=== PATIENT | female | born 1955 | race Caucasian/White ===

== ENCOUNTER 2017-12-13 06:19 | Inpatient (IN) ==
--- NOTE | 2017-12-01 09:31 | ANES ---
Anesthesia Pre Procedure Eval HOME MEDICATIONS Loratadine [Alavert] 10 mg PO BID PRN 07/06/13 [Last Taken Unknown] Omeprazole [Prilosec] 20 mg PO DAILY 07/06/13 [Last Taken Unknown] Acetaminophen [Tylenol] 500 - 1,000 mg PO Q4H PRN 10/23/13 [Last Taken Unknown] Citalopram Hydrobromide [Celexa] 10 mg PO DAILY 10/23/13 [Last Taken Unknown] turmeric root extract 500 mg capsule 500 mg PO DAILY 10/25/17 [Last Taken Unknown] Allergies/Adverse Reactions: Allergies Allergy/AdvReac Type Severity Reaction Status Date / Time doxycycline Allergy Mild Hives Verified 12/01/17 08:38 - Planned Procedure Planned Procedure: Right Total Hip Arthroplasty Medication List Reviewed:: Yes Allergies Verified: Yes Medical History (Last Reviewed 12/01/17 @ 08:32 by Seda Roman RN) Basal cell carcinoma on face and bilateral upper extremities, treated with excision GERD (gastroesophageal reflux disease) Onset Date: Unknown Gallstone Onset Date: Unknown Gastritis Onset Date: Unknown Hip pain, right Onset Date: ~2015 IBS (irritable bowel syndrome) Onset Date: Unknown Tongue lesion Onset Date: Unknown Surgical History (Last Updated 12/01/17 @ 08:33 by Seda Roman RN) H/O colonoscopy Onset Date: Unknown Caropresso-tubular adenoma. Bagan-hyperplastic polyp. Recheck 5 yrs.10/30/1307/2008 H/O dilation and curettage Onset Date: ~1975 History of appendectomy Onset Date: ~1981 History of basal cell carcinoma excision on face and bilateral upper extremities History of cardiac cath Onset Date: ~2014 Abdula History of esophagogastroduodenoscopy (EGD) Onset Date: Unknown 10/30/13 Bagan-clotest positive. Moderate chronic gastritis. Hx of cholecystectomy Onset Date: ~1981 open Family History (Last Updated 12/01/17 @ 08:33 by Seda Roman RN) Father Cancer leukemia Hypertension Mother , 72 Diabetes Heart disease Cancer colon, lung Hypertension Sister 3, 1 with RA and 1 with Crohn's - Airway/Neck/Teeth Within Normal Limits:: Yes Denture Type: Perm crown/bridge Mallampatti Score: 3 Thyromental (T-M) distance: > 6 cm Mandibulo Hyoid distance: > 3 cm - Cardiovascular Tolerates Activity: Fair Heart Sounds: S1 & S2, Regular - Anesthesia Assessment and Plan ASA Class: PS, II Anesthesia Type Plan: Spinal
[~2017-12-13 06:19] MED LIST: MORPHINE SULFATE 15 MG TABLET.SA PO PRN; ROPIVACAINE HCL/PF 100 MG, EPINEPHrine 0.2 MG, KETOROLAC TROMETHAMINE 30 MG in NORMAL S... IJ PRN; TRANEXAMIC ACID 1,000 MG in NORMAL SALINE 100 ML IV PRN; ceFAZolin SODIUM 1 GM VIAL IV PRN
[2017-12-13] MEDS: RINGER'S SOLUTION,LACTATED 1,000 ML IV PRN ×3 (07:03→09:22)
--- NOTE | 2017-12-13 07:24 | ANES ---
Anesthesia Pre Procedure Eval Vitals/Labs: Last Vital Signs Temp 36.7 C 12/13/17 06:32 Pulse 75 12/13/17 06:32 Resp 16 12/13/17 06:32 BP 129/75 12/13/17 06:32 Pulse Ox 97 12/13/17 06:32 HOME MEDICATIONS Acetaminophen [Tylenol] 500 - 1,000 mg PO Q4H PRN 10/23/13 [Last Taken Unknown] turmeric root extract 500 mg capsule 500 mg PO DAILY 10/25/17 [Last Taken Unknown] citalopram 10 mg tablet 10 mg PO DAILY #90 tab 12/02/17 [Last Taken Unknown] loratadine 10 mg tablet 10 mg PO DAILY 12/02/17 [Last Taken Unknown] omeprazole 20 mg capsule,delayed release 20 mg PO DAILY #90 cap 12/02/17 [Last Taken Unknown] triamcinolone acetonide 0.1 % dental paste 1 applic DT DAILY PRN #5 g 12/02/17 [Last Taken Unknown] Allergies/Adverse Reactions: Allergies Allergy/AdvReac Type Severity Reaction Status Date / Time doxycycline Allergy Mild Hives Verified 12/13/17 06:39 - Planned Procedure Planned Procedure: Right Total Hip Arthroplasty Medication List Reviewed:: Yes Allergies Verified: Yes Medical History (Last Reviewed 12/13/17 @ 07:22 by Arpit Raines CRNA) Basal cell carcinoma on face and bilateral upper extremities, treated with excision GERD (gastroesophageal reflux disease) Onset Date: Unknown Gallstone Onset Date: Unknown Gastritis Onset Date: Unknown Hip pain, right Onset Date: ~2015 IBS (irritable bowel syndrome) Onset Date: Unknown Tongue lesion Onset Date: Unknown Surgical History (Last Reviewed 12/13/17 @ 07:22 by Arpit Raines CRNA) H/O colonoscopy Onset Date: Unknown Caropresso-tubular adenoma. Bagan-hyperplastic polyp. Recheck 5 yrs.10/30/1307/2008 H/O dilation and curettage Onset Date: ~1975 History of appendectomy Onset Date: ~1981 History of basal cell carcinoma excision on face and bilateral upper extremities History of cardiac cath Onset Date: ~2014 Abdula History of esophagogastroduodenoscopy (EGD) Onset Date: Unknown 10/30/13 Bagan-clotest positive. Moderate chronic gastritis. Hx of cholecystectomy Onset Date: ~1981 open Family History (Last Reviewed 12/13/17 @ 07:22 by Arpit Raines CRNA) Father Cancer leukemia Hypertension Mother , 72 Diabetes Heart disease Cancer colon, lung Hypertension Sister 3, 1 with RA and 1 with Crohn's - Airway/Neck/Teeth Within Normal Limits:: Yes Teeth Condition: Intact Mallampatti Score: 2 Thyromental (T-M) distance: > 6 cm Mandibulo Hyoid distance: > 3 cm - Respiratory Respiratory: lungs clear Smoking Status: Never smoker Discussed smoking cessation including day of surgery: No Sleep Apnea currently treated: No Sleep Apnea by current assessment: No Discussed Risks/Treatment of COMFORT: No - Cardiovascular Tolerates Activity: Good Heart Sounds: S1 & S2, Regular - Anesthesia Assessment and Plan ASA Class: PS, II Anesthesia Type Plan: Spinal
[2017-12-13] MEDS ORDERED: DEXTROSE 5%-LACTATED RINGERS 1,000 ML IV PRN (09:57)
[2017-12-13] MEDS ORDERED: ACETAMINOPHEN 500 MG TABLET PO PRN (09:57)
[2017-12-13] MEDS ORDERED: MAGNESIUM HYDROXIDE 30 ML UDC PO PRN (09:57)
[2017-12-13] MEDS ORDERED: MORPHINE SULFATE 2 MG/ML DISP.SYRIN IV PRN (09:57)
[2017-12-13] MEDS ORDERED: diphenhydrAMINE HCL 50 MG/ML VIAL IV PRN (09:57)
[2017-12-13] MEDS ORDERED: ZOLPIDEM TARTRATE 5 MG TABLET PO PRN (09:57)
[2017-12-13] MEDS ORDERED: MAG HYDROX/ALUMINUM HYD/SIMETH 30 ML UDC PO PRN (09:57)
--- NOTE | 2017-12-13 09:57 | OR ---
Operative Report - Dictated Report Narrative: Date: 12/13/2017 Preoperative diagnosis: Right hip degenerative joint disease. Postoperative diagnosis: Right hip degenerative joint disease. Procedure: Right Total hip arthroplasty. Surgeon: Eugene Khan M.D. Carbon Brushes Assembler: Kade Cardenas PA-C Anesthesia: Spinal and local periarticular joint injection. Complications: None Specimens: Bone for disposal. Estimated blood loss: 200 milliliters. Retained implants: Depuy Johnston size 4 femoral stem standard offset. Size 56 millimeter outside diameter 3-hole [place] Gription acetabular cup. 56 millimeter outside by 40 millimeter inside diameter highly cross-linked acetabular liner. 40 millimeter diameter +1.5 millimeter ceramic femoral head. Cancellous 6.5mm screw 25 millimeter length Indications: Mrs. Veliz is a 62-year-old female who has had long-standing left hip pain and arthrosis. This patient was followed in my clinic for period of time with significant complaints of left hip pain consistent with arthritic changes. She failed conservative measures including but not limited to activity modification, passage of time, medications, and other conservative measures. Patient wished to proceed with surgical treatment. The risks, benefits, and alternatives were discussed in clinic. The risks of , blood clots, bleeding, infection, nerve/tendon blood vessel/ injury, malposition of components, dislocation and/or instability of joint, intraoperative fracture, postoperative limited range of motion, persistent pain, failure of components, and need for additional procedures. Patient wished to proceed. Consent was obtained after answering all questions. Procedure: After marking the correct extremity on the floor, the patient was taken to the operating room. A timeout was performed. IV antibiotics consisting of Ancef were administered prior to the procedure. A spinal anesthetic was induced by anesthesia. A Allen catheter was inserted. The patient was then transitioned to a lateral position on a well-padded pegboard. An axillary roll was placed. The head was in neutral position. The non- operative down leg was well-padded with SCD and TERI hose in place. The arms were supported and padded to protect from any undue pressure on the bony prominences and nerves. A well-padded anterior and posterior pelvic and chest posts were secured in order to maintain a stable position of the pelvis. This was placed so that the pelvis was perpendicular to the floor. The body was in line with the pelvis. Once it was felt that we had protected all the bony prominences and the patient was well secured with a safety belt as well, the leg was pre-scrubbed with alcohol, prepped and draped in a standard sterile fashion. A standard anterior lateral hip incision was marked out over the greater trochanter. Ioban drapes were then placed. The skin incision was then made. Sharp dissection with a scalpel utilizing cautery for hemostasis was carried out down to the gluteus and iliotibial band fascia. This was split in line with the skin incision. The greater trochanter bursa was excised. The anterior and posterior margins of the abductor tendon were identified. The anterior 1/2-1/3 of the tendon was tagged and reflected off the greater trochanter leaving a sleeve of tendon for repair at the completion of the case. This exposed the underlying hip joint capsule. A limb length stitch was placed in the skin and referencedd off a beth on the greater trochanter for evaluation of intraoperative limb lengths. An inverted T-type capsulotomy was made extending this up to the brim of the acetabulum. Using Homans to assist with elevation of the soft tissues off the anterior, superior, and inferior aspects of the femoral neck, the hip was then placed in a figure 4 position and the femoral head was dislocated. With the leg in an externally rotated and adducted position, the cutting flag was utilized in order to beth for a standard femoral neck cut approximately a fingerbreadth above the level of the lesser trochanter. This was done with reference to pre-operative films and overall alignment. This was done while protecting the surrounding soft tissues with Homans. The femoral head was then removed and sized for guidance on preparation of the acetabulum. It was noted that there was loss of articular cartilage on both the femoral head and weightbearing portions of the acetabulum. We then returned the leg to the table and turned our attention to the acetabulum. While protecting the surrounding soft tissues, the labrum and remaining tissue in the fovea were excised using a scalpel and cautery. A series of reamers up to size 56 millimeter were utilized to prepare the acetabulum. The final reamer had good purchase and exposed the bleeding subchondral bone. The acetabulum was then thoroughly irrigated ensuring that all bony and cartilaginous materials were removed, and the final acetabular shell was impacted into place. This was placed in approximately 45 degrees of abduction and 20 degrees of anteversion utilizing the outrigger and body axis for alignment. This had a good press fit. 1 6.5mm cancellous screw was placed in the superior posterior quadrant of the acetabulum. The shell was then thoroughly irrigated and the final polyethylene was impacted into place ensuring that it seated completely. This was then protected with a sponge while we returned our attention to the femur. With the leg in a figure 4 position, utilizing Homans for soft tissue protection, a box cutting osteotome, followed by Charnley awl, followed by serial reamers and broaches were utilized in order to prepare the femur. It was found that a size 4 broach gave good axial and rotational stability. The proximal femur was visualized to ensure that there were no signs of fracture. A series of heads and necks were trialed. It was found that a standard neck and a + 1.5 femoral head gave good overall stability. There was minimal longitudinal instability. With the leg in the position of sleep, the femoral head was well covered. Hip range of motion was able to reach full extension and external rotation to greater than 75 degrees prior to impingement along the posterior acetabulum. The hip was able to be flexed to greater than 90 degrees with int ernal rotation greater than 60 degrees prior to anterior impingement. The limb lengths were near equal based on comparison to the contralateral side and the prior placed limb length stitch. At this point it was felt these were the appropriately sized femoral components as well as neck and femoral head. The trial implants were removed. The femur was thoroughly irrigated. The final implants were impacted into place, and the hip was reduced. After ensuring that there was no damage to the proximal femur, the standard periarticular joint injection of ropivacaine, Toradol, and epinephrine were injected into the joint capsule and surrounding soft tissues. Anesthesia then administered intravenous tranexamic acid. The capsule was repaired with a single interrupted #1 Vicryl. The abductor tendon was repaired to the greater trochanter utilizing #5 Ethibond through drill holes. This was oversewn with #1 Vicryl. The fascia was closed with interrupted #1 Vicryl. The wounds were thoroughly irrigated as we closed in layers. The deep and subcutaneous fat layers were closed with 0 and 3-0 Vicryl respectively. The subcutaneous tissue was closed with a running 3-0 Vicryl and the skin with teri. All sponge, needle, blade, and instrument counts were correct prior to closing the wounds. Sterile dressings consisting of Xeroform, 4 x 4's, and tape were applied. The patient was awoken and transferred to her hospital bed and then to the postanesthesia care unit in stable condition. Postoperative condition: The plan is to admit to the medical/surgical inpatient floor postoperatively. There will be a projected 1 to 3 day hospital stay. Postoperatively 24 hours of IV antibiotics, pain control, physical therapy, occupational therapy, and medical comanagement will be utilized. Patient will be weightbearing as tolerated with anterior hip precautions. Postoperative films will be obtained in the recovery room.
[2017-12-13] MEDS ORDERED: TRIAMCINOLONE ACETONIDE 5 APPL TUBE DT PRN (09:59)
--- NOTE | 2017-12-13 10:16 | ANES ---
Post Anesthesia Discharge - Transfer of Care Transfer of Care handoff given to nurse: Yes - Discharge from PACU Discharge from PACU when meets criteria: Yes - Discharge to ASU Discharge to ASU-no complications/pt stable: Yes
--- NOTE | 2017-12-13 10:48 | ANES ---
Post Anesthesia Assessment - Vital Signs Vitals: Last Vital Signs Temp 36.3 C 12/13/17 10:35 Pulse 52 L 12/13/17 10:40 Resp 18 12/13/17 10:40 BP 99/56 12/13/17 10:40 Pulse Ox 98 12/13/17 10:40 Airway Patency: Normal - Mental Status Level Of Consciousness: Awake - Pain Level Pain Score: 0 - N/V Assessment Nausea/Vomiting Presence: None Dehydration:: No
[2017-12-13] MEDS: KETOROLAC TROMETHAMINE 15 MG/ML VIAL IV SCH ×3 (11:12→21:23)
[2017-12-13] MEDS: ONDANSETRON HCL/PF 2 MG/ML VIAL IV PRN (11:47)
[2017-12-13] MEDS: ceFAZolin SODIUM 1 GM in DEXTROSE 5 % IN WATER 100 ML IV SCH ×6 (12:28→22:59)
[2017-12-13] MEDS: oxyCODONE HCL/ACETAMINOPHEN 1 TAB TABLET PO PRN ×3 (14:02→23:04)
[2017-12-13] MEDS: MORPHINE SULFATE 15 MG TABLET.SA PO SCH (20:06)
[2017-12-13] MEDS ORDERED: SENNOSIDES/DOCUSATE SODIUM 1 TAB TABLET PO SCH (21:00)
[2017-12-13] MEDS ORDERED: PANTOPRAZOLE SODIUM 20 MG TABLET.DR PO SCH (21:00)
[2017-12-14] MEDS: KETOROLAC TROMETHAMINE 15 MG/ML VIAL IV SCH ×3 (03:26→16:00)
[2017-12-14 05:47] LABS: Hemoglobin 10.4 gm/dL (12.5-16.0); Mean Cell Volume 91.4 fl (78-100); Mean Corpuscular Hemoglobin 29.7 pg (27-31); Mean Corpuscular Hgb Conc 32.5 g/dl (32-36); Mean Platelet Volume 11.1 fl (8-12.5); Platelet Count 215 K/mm3 (150-450); Red Cell Distribution Width 13.1 % (11.5-14.0); White Blood Count 14.8 K/mm3 (4.0-10.5)
[2017-12-14 05:48] LABS: BUN/Creatinine Ratio 9.7 (9.0-21.6); Calcium * 7.7 mg/dL (7.9-10.9); Estimated Creat Clear 51.5
[2017-12-14] MEDS ORDERED: PANTOPRAZOLE SODIUM 20 MG TABLET.DR PO SCH (07:00)
[2017-12-14] MEDS: ONDANSETRON HCL/PF 2 MG/ML VIAL IV PRN (07:10)
[2017-12-14] MEDS: MECLIZINE HCL 25 MG TABLET PO PRN ×2 (08:21→09:58)
[2017-12-14] MEDS ORDERED: ENOXAPARIN SODIUM 40 MG/0.4 ML SYRG SC SCH (08:58)
[2017-12-14] MEDS ORDERED: CITALOPRAM HYDROBROMIDE 10 MG TABLET PO SCH (09:00)
[2017-12-14] MEDS ORDERED: LORATADINE 10 MG TABLET PO SCH (09:00)
[2017-12-14] MEDS: MORPHINE SULFATE 15 MG TABLET.SA PO SCH (10:00)
[2017-12-14] MEDS: oxyCODONE HCL/ACETAMINOPHEN 1 TAB TABLET PO PRN ×2 (11:17→15:24)
[2017-12-14 15:41] VITALS: BP 100/50
--- NOTE | 2017-12-14 15:52 | DS ---
(1) Status post total hip replacement, right Problem: Acute (2) Acute blood loss anemia Problem: Acute (3) Environmental allergies Problem: Chronic (4) Depression Problem: Chronic Description of Stay: Mrs. Veliz was admitted to the floor after undergoing right total hip arthroplasty. Tolerated this well. Was admitted to the floor postoperatively for 24 hours of IV antibiotics, pain control, medical comanagement, and occupational and physical therapy. OT and PT were consulted to assist with activities of daily living and ambulation. Was made weightbearing as tolerated with anterior hip precautions. Pain was initially controlled with IV regimen. This was transitioned to oral once tolerating a by mouth intake. Was resumed on home diet and medications. Had a Allen catheter inserted and the operating room which was discontinued on postoperative day 1. A drain was placed intraoperatively into the knee which was discontinued on postoperative day 1. Lovenox SCD and TERI hose were utilized for DVT prophylaxis. Vital signs remained stable to the hospital course. Serial labs were obtained which showed a final hemoglobin of 10.4 grams. BMP was reviewed and was stable. Physical examination throughout the hospital course showed an extremity that had sensation that was intact to light touch, palpable pulses, a benign wound, motor intact to the toes, ankle, and knee. Once an oral pain regimen was tolerated and physical therapy goals were met, it was felt that they were stable for discharge to home. Instructions: Continue with weightbearing as tolerated and anterior hip precautions with no active abduction. Keep the wound dry. Do not bathe or soak the wound. Cover with dry gauze and tape. Change every 2-3 days as needed if there is any drainage. Cover wound while showering. Continue with physical therapy. Resume home diet. Report any fever over 101.5 Fahrenheit, uncontrolled pain, increased drainage, foul odor of drainage, new or increased calf pain or shortness of breath, or any other significant complaints. A 325mg dialy aspirin will be started after finishing anticoagulation if not allergic. Continue with TERI hose on the operative extremity until instructed otherwise. No driving until instructed otherwise. Follow up in approximately 10-14 days. Procedures Performed: see notes below List Procedures: Right total hip arthroplasty Results and Findings: Lab Pending Results 12/14/17 05:36: WBC 14.8 H, RBC 3.50 L, Hgb 10.4 L, Hct 32.0 L, MCV 91.4, MCH 29.7, MCHC 32.5, RDW 13.1, Plt Count 215, MPV 11.1 12/14/17 05:36: Sodium 140, Plasma Sodium 140, Potassium 4.0, Chloride 105, Carbon Dioxide 30.0, Anion Gap 9.0, BUN 10, Creatinine 1.03, Est GFR (Non-Af Amer) 58 L, BUN/Creatinine Ratio 9.7, Random Glucose 111 H, Calcium 7.7 L Discharge Location: Home Disposition: Home self-care Condition: Good Discharge Activity: Weight bearing, Other - anterior hip precautions no active abduction Discharge Diet: General/regular food Referrals: Kristina Patel MD [Primary Care Provider] - Prescriptions (Any new or edited meds): Enoxaparin Sodium [Lovenox] 40 mg SC Q24H #7 disp.syrin Meclizine HCl [Antivert] 25 mg PO QID PRN #30 tablet PRN Reason: Nausea Morphine Sulfate [Ms Contin] 15 mg PO Q12H #20 tablet.sa oxyCODONE HCL/ACETAMINOPHEN [Percocet 5 MG/325 MG] 2 tab PO Q4H PRN #60 tablet PRN Reason: Moderate Pain (Pain Scale 4-6) Sennosides/Docusate Sodium [Senokot-S] 2 tab PO HS #60 tablet Complete Home Medications List: Complete Home Medication List: turmeric root extract 500 mg capsule 500 mg PO DAILY 10/25/17 citalopram 10 mg tablet 10 mg PO DAILY #90 tab 12/02/17 loratadine 10 mg tablet 10 mg PO DAILY 12/02/17 omeprazole 20 mg capsule,delayed release 20 mg PO DAILY #90 cap 12/02/17 triamcinolone acetonide 0.1 % dental paste 1 applic DT DAILY PRN #5 g 12/02/17 Enoxaparin Sodium [Lovenox] 40 mg SC Q24H #7 disp.syrin 12/14/17 Meclizine HCl [Antivert] 25 mg PO QID PRN #30 tablet 12/14/17 Morphine Sulfate [Ms Contin] 15 mg PO Q12H #20 tablet.sa 12/14/17 Sennosides/Docusate Sodium [Senokot-S] 2 tab PO HS #60 tablet 12/14/17 oxyCODONE HCL/ACETAMINOPHEN [Percocet 5 MG/325 MG] 2 tab PO Q4H PRN #60 tablet 12/14/17 Amb Orders for Discharge: PT Evaluation and Treatment* Facility: [facility], Location: Rehabilitation Services
== END 2017-12-14 16:15 | disposition home or self-care (01) | DRG 470 ==
LOC: MS 06:19
PROVIDERS: ADMIT Orthopaedic Surgery; ATTEND Orthopaedic Surgery
CPT/HCPCS: 36415; 73502; 80048; 85027; 97116; 97161; 97165; 97535; J2405